=== PATIENT | male | born 1980 | race African-American/Black ===

== ENCOUNTER 2023-05-17 08:10 | Emergency (ER) | payer SELFPAY ==
--- OUTSIDE RECORDS SUMMARY | 2023-05-17 08:14 | XMS REPORT | Continuity of Care Document ---
Author Name Unknown Address [address] [facility] [place] [address] [facility] thconnect Address [address] [facility] [place] [address] Care Team Providers Care Tongue Presser Name Role Phone PCP, PATIENT DOES NOT HAVE A Primary Care Physic padmini Unavailable PAUL BILLY Attending Clinician UnavailPaul Benitez DO Attending Clinician PETE BONE Admitting Clinician Unavailable Allergies, Adverse Reactions, Alerts Allergy Name Allergy Type Status Severity Reaction(s) Onset Date Inactive Date Treating Clinician Comments Source NO KNOWN ALLERGIE S Drug Class Active [facility] Social History Social Habit Start Date Stop Date Quantity Comments Source Sex Assigned At 1980 00:00:00 1980 00:00:00 [facility] Smoking Status Start Date Stop Date Source Unknown if ever smoked [facility] Medications Ordered Medication Name Filled Medication Name Start Date Stop Date Current Medication? Ordering Clinician Indication Dosage Frequency Signature (SIG) Comments Components Source ceFAZolin in 0.9% sodium chloride (ANCEF) 2 gram/100 mL RTU 2 g 03-02 05:00: 00 07-12 18:30 :00 No 2000mg 2 g (2,000 mg), IV Piggyback, ONCE, 1 dose, On Sat03/02/22 at 0000, Administer over 30 Minutes
Reason for Anti-Infec tive: Empiric Therapy for Suspected Infection< br>Empiric Therapy Site: Wound
D uration of therapy: 72 hours [facility] iopamidol (ISOVUE 300-500 mL) injection 120 mL 07-12 15:15: 00 07-12 15:15 :00 No [id number] 120mL 120 mL, Intravenou s, ONCE, 1 dose, On Sat07/12/21 at 0915, Routine [facility] lactated ringers IV infusion 1,000 mL 07-12 14:30: 00 07-12 18:45 :00 No 1000mL at 999 mL/hr, 1,000 mL, IV Infusion, ONCE, 1 dose, On Sat07/12/21 at 0830, STAT [facility] Vital Signs Vital Name Observation Time Observation Value Comments S ource Systolic blood pressure 2021-07-12 18:25:00 138 mm[Hg] [facility] Diastolic blood pressure 2021-07-12 18:25:00 82 mm[Hg] [facility] Heart rate 2021-07-12 18:25:00 65 /min [facility] Body temperature 2021-07-12 18:25:00 37 Porsha [facility] Respiratory rate 2021-07-12 18:25:00 16 /min [facility] Oxygen saturation in Arterial blood by Pulse oximetry 2021-07-12 18:25:00 100 /min [facility] Body height 2021-07-12 18:08:46 175.3 cm [facility] Body weight 2021-07-12 18:08:46 83.915 kg [facility] BMI 2021-07-12 18:08:46 27.32 kg/m2 [facility] Procedures Procedure Date / Time Performed Performing Clinician Source CT TRAUMA HEAD WO CONTRAST 2021-07-12 15:55:[address] [facility] [address] TRAUMA THORAX W CONTRAST 2021-07-12 15:55:[address] [facility] [address] TRAUMA CERVICAL SPINE WO CONTRAST 2021-07-12 15:55:[address] [facility] [address] TRAUMA THORACIC SPINE WO CONTRAST 2021-07-12 15:55:[address] [facility] [address] TRAUMA ABDOMEN PELVIS W CONTRAST 2021-07-12 15:55:[address] [facility] [address] TRAUMA LUMBAR SPINE WO CONTRAST 2021-07-12 15:55:25 Dalia [facility] BASIC METABOLIC PANEL (NA, K, CL, CO2, GLUCOSE, BUN, CREATININE, CA) 2021-07-12 14:57:[address] [facility] CBC WITHOUT DIFF 2021-07-12 14:57:00 Alvarado Aviles [facility] PROTHROMBIN TIME / INR 2021-07-12 14:57:00 Jeevan Aviles [facility] ACTIVATED PARTIAL THRMPLAS NELY 2021-07-12 14:57:[address] [facility] HB ABO GROUPING 2021-07-12 14:50:00 Alvarado Aviles [facility] Encounters Start Date/Time End Date/Time Encounter Type Admission Type Attending [facility] Care Facility Care Department Encounter ID Source 2021-07-12 08:27:00 2021-07-12 13:03:00 Emergency T PAUL BILLY [facility] STR [id number] [facility] 2021-07-12 08:27:00 2021-07-12 13:03:00 Emergency Paul [facility] [id number] [facility] Results Test Description Test Time Test Comments Results Result Co mments Source [facility] [id number] 15:41:15* Test Item Value Reference Range Interpretation Comme nts WBC (test code = 6690-2) See_Comment [Automated messa ge] The system which generated this result transmitted reference range: 4.20 - 10.70 10*3/?L. The reference range was not used to interpret this result as normal/abnormal. RBC (test code = 789-8) See_Comment [Automated messa ge] The system which generated this result transmitted reference range: 4.26 - 5.52 10*6/?L. The reference range was not used to interpret this result as normal/abnormal. HGB (test code = 718-7) 12.9 g/dL 12.2-16.4 HCT (test code = 4544-3) 39.1 % 38.4-49.3 MCH (test code = 785-6) 29.1 pg 26.1-32.7 MCV (test code = 787-2) 88.3 fL 81.7-95.6 MCHC (test code = 786-4) 33.0 g/dL 31.2-35.0 PLT (test code = 777-3) See_Comment [Automated messa ge] The system which generated this result transmitted reference range: 150 - 328 10*3/?L. The reference range was not used to interpret this result as normal/abnormal. MPV (test code = 02617-7) 11.4 fL 9.8-13.0 RDW-CV (test code = 788-0) 12.5 % 12.1-15.4 RDW-SD (test code = 69730-9) 40.3 fL 38.5-51.6 NRBC x10^3 (test code = 0325480254) <0.01 See_Comment [Automated me ssage] The system which generated this result transmitted reference range: 10*3/?L. The reference range was not used to interpret this result as normal/abnormal. NRBC/100 WBC (test code = 4686637953) See_Comment [Automated me ssage] The system which generated this result transmitted reference range: 0.0 - 10.0 /100 WBCs. The reference range was not used to interpret this result as normal/abnormal. IPF % (test code = 1553392453) 7.3 % 1.2-10.7 Platelet count m easured by fluorescence method. [facility] Center[facility]th[facility] Time / [id number] 15:26:58* Test Item Value Reference Range Interpretation Comme nts PROTIME PATIENT (test code = 5964-2) See_Comment L [Automated messa ge] The system which generated this result transmitted reference range: 10.1 - 12.6 Seconds. The reference range was not used to interpret this result as normal/abnormal. INR (test code = 6301-6) Normal INR <1.1; Warfarin Therapeutic range 2.0 to 3.0 or 2.5 to 3.5, depending upon the indications. Lab Interpretation (test code = 06645-8) Abnormal [facility] Metabolic Panel (NA, K, CL, CO2, GLUCOSE, BUN, CREATININE, CA)2021-07-12 15:24:12* Test Item Value Reference Range Interpretation Comme nts NA (test code = 5936867479) 139 mmol/L 135-145 K (test code = 1573569939) 4.6 mmol/L 3.5-5.0 CL (test code = 0647025512) 106 mmol/L 98-108 CO2 TOTAL (test code = 6949767821) 26 mmol/L 23-31 AGAP (test code = 3462110565) 2-16 BUN (test code = 2135228071) 13 mg/dL 7-23 GLUCOSE (test code = 7332683898) 125 mg/dL 70-110 H CREATININE (test code = 0489122246) 0.83 mg/dL 0.60-1.25 CALCIUM (test code = 8889603194) 9.0 mg/dL 8.6-10.6 eGFR (test code = 8972986634) mL/min/1.73m2 NARESH (test code = NARESH) Association of Glomerular Filtration Rate (GFR) and Staging of Kidney Disease* + --+ --+ ------+| GFR (mL/min/1.73 m2) ?| With Kidney Damage ?| ?Without Kidney Damage+ --------+ --------+ +| ?>90 ?| ?Stage one ?| ? Normal ?+ ---+ ---+ -------+| ?60-89 ?| ?Stage two ?| ? Decreased GFR ? + --+ --+ ------+| ?30-59 ?| ?Stage three ?| ? Stage three ? + --+ --+ ------+| ?15-29 ?| ?Stage four ? | ? Stage four ?+ ---+ ---+ -------+| ?<15 (or dialysis) ? ?| ?Stage five ? | ? Stage five ?+ ---+ ---+ -------+ *Each stage assumes the associated GFR level has been in effect for at least three months. ?Stages 1 to 5, with or without kidney disease, indicate chronic kidney disease. Notes: Determination of stages one and two (with eGFR >59mL/min/1.73 m2) requires estimation of kidney damage for at least three months as defined by structural or functional abnormalities of the kidney, manifested by either:Pathological abnormalities or Markers of kidney damage (including abnormalities in the composition of the blood or urine or abnormalities in imaging tests). Lab Interpretation (test code = 96861-8) Abnormal [facility] Cent[facility]PTT[facility] 15:24:02* Test Item Value Reference Range Interpretation Comme nts APTT Patient (test code = 3173-2) See_Comment [Automated [employer]] The system which generated this result transmitted reference range: 26 - 36 Seconds. The reference range was not used to interpret this result as normal/abnormal. Lab Interpretation (test code = 41881-7) Normal [facility]"
--- NOTE | 2023-05-17 09:36 | EDPHYS ---
Physician Documentation [facility] Name: Paul Escobedo Age: 43 yrs Sex: Male : 1980 Arrival Date: 05/17/2023 Time: 08:10 Bed 11 Private MD: ED Physician Bar Villagran HPI: 05/17 09:48 This 43 yrs old Black Male presents to ER via Ambulatory with complaints of Low Back rt Pain. 09:48 Patient presents to the ED with a right lower back pain for about 3 days after he rt [employer] lights. Denies any discrete injury. States that it feels tight. Is nonradiating, no bowel, bladder incontinence, no numbness, tingling. Denies other acute complaints, symptoms are mild in severity, no other aggravating or alleviating factors.. Historical: - Allergies: 09:26 No Known Allergies; aa5 - PMHx: 09:26 None; aa5 - PSHx: 09:26 None; aa5 - Immunization history:: Adult Immunizations unknown. - Social history:: Smoking status: Patient denies any tobacco usage or history of. - Family history:: not pertinent. ROS: 09:48 Constitutional: Negative for fever, chills, and weight loss, Cardiovascular: Negative rt for chest pain, palpitations, and edema, Respiratory: Negative for shortness of breath, cough, wheezing, and pleuritic chest pain, Abdomen/GI: Negative for abdominal pain, nausea, vomiting, diarrhea, and constipation, Skin: Negative for injury, rash, and discoloration, Neuro: Negative for headache, weakness, numbness, tingling, and seizure, Psych: Negative for depression, anxiety, suicide ideation, homicidal ideation, and hallucinations, 09:48 Back: Positive for pain at rest, pain with movement, Exam: 09:48 Constitutional: This is a well developed, well nourished patient who is awake, alert, rt and in no acute distress. Head/Face: Normocephalic, atraumatic. Neck: Trachea midline, no thyromegaly or masses palpated, and no cervical lymphadenopathy. Supple, full range of motion without nuchal rigidity, or vertebral point tenderness. No Meningismus. Skin: Warm, dry with normal turgor. Normal color with no rashes, no lesions, and no evidence of cellulitis. MS/ Extremity: Pulses equal, no cyanosis. Neurovascular intact. Full, normal range of motion. Neuro: Awake and alert, GCS 15, oriented to person, place, time, and situation. Cranial nerves II-XII grossly intact. Motor strength 5/5 in all extremities. Sensory grossly intact. Cerebellar exam normal. Normal gait. Psych: Awake, alert, with orientation to person, place and time. Behavior, mood, and affect are within normal limits. 09:48 Back: Tenderness to the right lower paraspinal region, no midline tenderness, Vital Signs: 09:25 BP 135 / 92; Pulse 100; Resp 18 S; Temp 98.2(TE); Pulse Ox 100% on R/A; Weight 86.18 kg aa5 (R); Height 5 ft. 9 in. (R); 09:25 Body Mass Index 28.06 (86.18 kg, 175.26 cm) aa5 MDM: 09:31 Patient medically screened. rt 09:48 Differential diagnosis: Muscle spasm, arthritis, disc disease. Data reviewed: vital rt signs, nurses notes. Test considered but Not performed: MRI: No red flag symptoms to suggest cauda equina syndrome, spinal epidural abscess, MRI not indicated. Counseling: I had a detailed discussion with the patient and/or guardian regarding the historical points, exam findings, and any diagnostic results supporting the discharge/admit diagnosis, the need for outpatient follow up, to return to the emergency department if symptoms worsen or persist or if there are any questions or concerns that arise at home. Administered Medications: 09:53 Drug: Ketorolac IM 15 mg IM once Route: IM; Site: right gluteus; aa5 10:20 Follow up: Response: No adverse reaction aa5 Disposition Summary: 05/17/23 09:36 Discharge Ordered Notes: Location: Home rt Problem: new rt Symptoms: have improved rt Condition: Stable rt Diagnosis - Low back pain rt Followup: rt - With: Private Physician - When: 2 - 3 days - Reason: Discharge Instructions: - Discharge Summary Sheet rt - Acute Back Pain, Adult rt Forms: - Work release form aa5 - Medication Reconciliation Form rt - Thank You Letter rt - Antibiotic Education rt - Prescription Opioid Use rt - Patient Portal Instructions rt - Leadership Thank You Letter rt Prescriptions: - Cyclobenzaprine 10 mg Oral tablet - take 1 tablet ORAL route every 8 hours As needed; 15 tablet; Refills: 0, rt Product Selection Permitted Signatures: Leidy Miller, RN RN aa5 Bar Villagran MD MD rt
--- NOTE | 2023-05-17 09:36 | ER ---
Nurse's Notes [facility] Name: Paul Escobedo Age: 43 yrs Sex: Male : 1980 Arrival Date: 05/17/2023 Time: 08:10 Bed 11 Private MD: Diagnosis: Low back pain Presentation: 05/17 09:25 Chief complaint: Patient states: "My right lower back had been hurting but I was aa5 putting up the Allison lights and I think I tweaked it and now it's hurting worse". Coronavirus screen: At this time, the client does not indicate any symptoms associated with coronavirus-19. Ebola Screen: Patient denies travel to an Ebola-affected area in the 21 days before illness onset. Initial Sepsis Screen: Does the patient meet any 2 criteria? No. Patient's initial sepsis screen is negative. Does the patient have a suspected source of infection? No. Patient's initial sepsis screen is negative. Risk Assessment: Do you want to hurt yourself or someone else? Patient reports no desire to harm self or others. Onset of symptoms was May 2023. 09:25 Method Of Arrival: Ambulatory aa5 09:25 Acuity: JAGJIT 4 aa5 Historical: - Allergies: 09:26 No Known Allergies; aa5 - PMHx: 09:26 None; aa5 - PSHx: 09:26 None; aa5 - Immunization history:: Adult Immunizations unknown. - Social history:: Smoking status: Patient denies any tobacco usage or history of. - Family history:: not pertinent. Assessment: 10:20 Neuro: Level of Consciousness is awake, alert, obeys commands, Oriented to person, aa5 place, time, situation. Respiratory: Airway is patent Respiratory effort is even, unlabored, Respiratory pattern is regular, symmetrical. Derm: Skin is dry, Skin is normal, Skin temperature is warm. Vital Signs: 09:25 BP 135 / 92; Pulse 100; Resp 18 S; Temp 98.2(TE); Pulse Ox 100% on R/A; Weight 86.18 kg aa5 (R); Height 5 ft. 9 in. (R); 09:25 Body Mass Index 28.06 (86.18 kg, 175.26 cm) aa5 ED Course: 08:14 Patient arrived in ED. ts1 09:25 Arm band placed on. aa5 09:26 Triage completed. aa5 09:30 Bar Villagran MD is Attending Physician. rt 10:20 No provider procedures requiring assistance completed. Patient did not have IV access aa5 during this emergency room visit. Administered Medications: 09:53 Drug: Ketorolac IM 15 mg IM once Route: IM; Site: right gluteus; aa5 10:20 Follow up: Response: No adverse reaction aa5 Outcome: 09:36 Discharge ordered by . rt 10:20 Discharged to home ambulatory, with family, aa5 10:20 Condition: stable 10:20 Discharge instructions given to patient, Instructed on discharge instructions, follow up and referral plans. medication usage, Demonstrated understanding of instructions, follow-up care, medications, Prescriptions given X 1, 10:24 Patient left the ED. aa5 Signatures: Leidy Miller, RN RN aa5 Bar Villagran MD MD rt Ramona Munguia, PAS PAS ts1
[2023-05-17] MEDS ORDERED: KETOROLAC 30 MG/ML INJ ONE (09:48)
[2023-05-17 10:28] VITALS: BP 135/92; TEMP 98.2; O2SAT 100
== END 2023-05-17 10:24 | disposition home or self-care (01) ==
LOC: ER 08:10
DX: M54.50 Low back pain, unspecified (principal)
CPT/HCPCS: 96372; 99284

== ENCOUNTER 2024-03-25 15:04 | Emergency (ER) | payer BC ==
--- OUTSIDE RECORDS SUMMARY | 2024-03-25 15:06 | XMS REPORT | Continuity of Care Document ---
Author Name Unknown Address [address] [facility] [address] [place] [address] [facility] thconnect Address [address] [address] [place] [address] Care Team Providers Care Veterinary Medicine Scientist Name Role Phone PCP, PATIENT DOES NOT HAVE A Primary Care Physic padmini Unavailable Hank Dunbar Attending Clinician Unavailable TARA BILLY Attending Clinician UnavailTara Benitez DO Attending Clinician [phone] Physician, No Primary or Family Admitting Clinic padmini Unavailable PETE BONE Admitting Clinician Unavailable Payers Payer Name Policy Type Policy Number Effective Date Expirati on Date Source Allergies, Adverse Reactions, Alerts Allergy Name Allergy Type Status Severity Reaction(s) Onset Date Inactive Date Treating Clinician Comments Source No Known Allergie s DA Active U 2015-06 00:00: 00 ADELSO [facility] NO KNOWN ALLERGIE S Drug Class Active [facility] Social History Social Habit Start Date Stop Date Quantity Comments Source Sex Assigned At 1980 00:00:00 1980 00:00:00 [facility] Smoking Status Start Date Stop Date Source Unknown [facility] Medications Ordered Medication Name Filled Medication Name [...] Wound
D uration of therapy: 72 hours [facility] iopamidol (ISOVUE 300-500 mL) injection 120 mL 07-12 15:15: 00 07-12 15:15 :00 No [id number] 120mL 120 mL, Intravenou s, ONCE, 1 dose, On Sat07/12/21 at 0915, Routine [facility] lactated ringers IV infusion 1,000 mL 07-12 14:30: 00 07-12 18:45 :00 No 1000mL at 999 mL/hr, 1,000 mL, IV Infusion, ONCE, 1 dose, On Sat07/12/21 at 0830, STAT [facility] Vital Signs Vital Name Observation Time Observation Value Comments S ource Systolic blood pressure 2021-07-12 18:25:00 138 mm[Hg] [facility] Diastolic blood pressure 2021-07-12 18:25:00 82 mm[Hg] [facility] Heart rate 2021-07-12 18:25:00 65 /min [facility] Body temperature 2021-07-12 18:25:00 37 Porsha [facility] Respiratory rate 2021-07-12 18:25:00 16 /min [facility] Oxygen saturation in Arterial blood by Pulse oximetry 2021-07-12 18:25:00 100 /min [facility] Body height 2021-07-12 18:08:46 175.3 cm [facility] Body weight 2021-07-12 18:08:46 83.915 kg [facility] BMI 2021-07-12 18:08:46 27.32 kg/m2 [facility] Procedures Procedure Date / Time Performed Performing Clinician Source CT TRAUMA HEAD WO CONTRAST 2021-07-12 15:55:25 Dalia, [facility] CT TRAUMA THORAX W CONTRAST 2021-07-12 15:55:25 Dalia, [facility] CT TRAUMA CERVICAL SPINE WO CONTRAST 2021-07-12 15:55:25 Dalia, [facility] CT TRAUMA THORACIC SPINE WO CONTRAST 2021-07-12 15:55:25 Dalia, [facility] CT TRAUMA ABDOMEN PELVIS W CONTRAST 2021-07-12 15:55:25 Dalia, [facility] CT TRAUMA LUMBAR SPINE WO CONTRAST 2021-07-12 15:55:25 Dalia, [facility] BASIC METABOLIC PANEL (NA, K, CL, CO2, GLUCOSE, BUN, CREATININE, CA) 2021-07-12 14:57:00 Al[facility] CBC WITHOUT DIFF 2021-07-12 14:57:00 Alvarado Aviles glas [facility] PROTHROMBIN TIME / INR 2021-07-12 14:57:00 Jeevan Aviles [facility] ACTIVATED PARTIAL THRMPLAS NELY 2021-07-12 14:57:00 [facility] HB ABO GROUPING 2021-07-12 14:50:00 Alvarado Aviles [facility] Encounters Start Date/Time End Date/Time Encounter Type Admission Type Attending [facility] Care Facility Care Department Encounter ID Source 2023-06-13 09:32:00 2023-06-13 11:43:00 Emergency Hank Walters [facility] [id number] 11 [facility] 2021-07-12 08:27:00 2021-07-12 13:03:00 Emergency TARA MADERA [facility] STR [id number] [facility] 2021-07-12 08:27:00 2021-07-12 13:03:00 Emergency Tara Billy [facility] [id number] [facility] Results Test Description Test Time Test Comments Results Resul t Comments Source - XR WRIST 3 + V RT 2023-06-13 09:56:00 [facility] 1980 Sex: M FAX: Hank Dunbar DO Combs: St: REG Name: TARA DANIELSON J [facility] : 1980 Age/S: 43/M [address] [facility] [facility] Unit #: [id number] Loc: [facility] [place], [place]: [place] [id number] Acct: [id number] Dis Date: Status: REG ER PHONE #: [phone] Exam Date: 06/13/2023 0954 FAX #: [phone] Reason: abscess distally EXAMS: CPT CODE: [id number] XR WRIST 3 + V RT 30237 Location code: B2 X-ray right wrist 3 views. INDICATION: Abscess. FINDINGS: No priors. No evidence of an acute fracture or dislocation. No definite healing fractures are seen. Carpal row is intact. Distal radioulnar joint is intact. Soft tissue ulceration ulnar aspect of the distal forearm with soft tissue swelling. IMPRESSION: 1. No acute osseous abnormality. Soft tissue ulceration along the ulnar aspect of the distal forearm noted with soft tissue cellulitis at 0956 Reported and signed by: Ankit Watts M.D. CC: Hank Dunbar DO Technologist: WINSTON Edouardrd Date/Time/By: 06/13/2023 (6356) : By: [email or web address] PAGE 1 Signed Report FAX: Hank Dunbar DO Combs: St: REG Name: TARA DANIELSON [facility] : 1980 Age/S: 43/M [address] [facility] Unit #: [id number] Loc: E.ERS2 [place], [place]: [place] [id number] Acct: [id number] Dis Date: Status: REG ER PHONE #: [phone] Exam Date: 06/13/2023 0954 FAX #: [phone] Reason: abscess distally EXAMS: CPT CODE: [id number] XR WRIST 3 + V RT [id number] (Continued) Orig Print D/T: S: 06/13/2023 (0129) PAGE 2 Signed Report [facility] / [id number] 15:41:15* Test Item Value Reference Range Interpretation Comme nts WBC (test code = 6690-2) See_Comment [Automated Compumatrix[employer] Footmarks] The system which generated this result transmitted reference range: 4.20 - 10.70 10*3/?L. The reference range was not used to interpret this result as normal/abnormal. RBC (test code = 789-8) See_Comment [Automated [employer] Footmarks] The system which generated this result transmitted [...] PLT (test code = 777-3) See_Comment [Automated Compumatrixa ge] The system which generated this result transmitted reference range: 150 - 328 10*3/?L. The reference range was not used to interpret this result as normal/abnormal. MPV (test code = 59208-1) 11.4 fL 9.8-13.0 RDW-CV (test code = 788-0) 12.5 % 12.1-15.4 RDW-SD (test code = 16129-0) 40.3 fL 38.5-51.6 NRBC x10^3 (test code = 7567813383) <0.01 See_Comment [Automated me ssage] The system which generated this result transmitted reference range: 10*3/?L. The reference range was not used to interpret this result as normal/abnormal. NRBC/100 WBC (test code = 5573918154) See_Comment [Automated me ssage] The system which generated this result transmitted reference range: 0.0 - 10.0 /100 WBCs. The reference range was not used to interpret this result as normal/abnormal. IPF % (test code = 7895676138) 7.3 % 1.2-10.7 Platelet count m easured by fluorescence method. [facility] AmericaProthrombin Time / [id number] 15:26:58* Test Item Value Reference Range Interpretation Comme nts PROTIME PATIENT (test code = 5964-2) See_Comment L [Automated Compumatrixa ge] The system which generated this result transmitted reference range: 10.1 - 12.6 Seconds. The reference range was not used to interpret this result as normal/abnormal. INR (test code = 6301-6) Normal INR <1.1; Warfarin Therapeutic range 2.0 to 3.0 or 2.5 to 3.5, depending upon the indications. Lab Interpretation (test code = 07493-8) Abnormal [facility] Metabolic Panel (NA, K, CL, CO2, GLUCOSE, BUN, CREATININE, CA)2021-07-12 15:24:12* Test Item Value Reference Range Interpretation Comme nts NA (test code = 7095087186) 139 mmol/L 135-145 K (test code = 0478452729) 4.6 mmol/L 3.5-5.0 CL (test code = 8569933048) 106 mmol/L 98-108 CO2 TOTAL (test code = 0742775457) 26 mmol/L 23-31 AGAP (test code = 1362039699) 2-16 BUN (test code = 3577867076) 13 mg/dL 7-23 GLUCOSE (test code = 9734310681) 125 mg/dL 70-110 H CREATININE (test code = 1439233068) 0.83 mg/dL 0.60-1.25 CALCIUM (test code = 2629445068) 9.0 mg/dL 8.6-10.6 eGFR (test code = 7669008089) mL/min/1.73m2 NARESH (test code = NARESH) Association [...] imaging tests). Lab Interpretation (test code = 89283-8) Abnormal [facility] AmericaaPTT2022-02-09 15:24:02* Test Item Value Reference Range Interpretation Comme nts APTT Patient (test code = 3173-2) See_Comment [Automated messa ge] The system which generated this result transmitted reference range: 26 - 36 Seconds. The reference range was not used to interpret this result as normal/abnormal. Lab Interpretation (test code = 56444-4) Normal [facility] Notes Date/Time Note Provider Source 2023-06-13 11:16:00 [facility] EMERGENCY PROVIDER REPORT REPORT#:[id number] REPORT STATUS: Signed DATE:06/13/23 TIME: 1116 PATIENT: TARA DANIELSON UNIT #: [id number] ROOM/BED: AGE: 43 SEX: M PCP PHYS: No Primary or Family Physician SERVICE AUTHOR: Hank Dunbar DO * ALL edits or amendments must be made on the electronic/computer document * HPI-Headache Free Text HPI Notes Free Text HPI Notes Patient reports right arm pain, for the past few days, mild intensity, nonradiating, worse with pressure. Started as insect bite that has been getting worse REVIEW OF SYSTEMS ROS STATEMENTS *All systems reviewed negative except as marked Constitutional: no fever, no chills Cardiovascular: no chest pain or discomfort, no palpitations Respiratory: no gncstbrgm-kf-wvdeam, no cough GI: no nausea, no vomiting, no diarrhea, no constipation, no abdominal pain Neurologic: no weakness or numbness. Musculoskeletal: (+) Arm pain General Initial Greet Date/Time 06/13/23 0933 Presentation Chief Complaint R arm pain Sudden in Onset? No Pain/Sev: Onset Mild Past Medical History - Adult Stated Complaint INSECT BITE Allergies Coded Allergies: No Known Allergies (04/10/16) Pt reports no significant: Past medical history, Past surgical history, Family history Drug Use Marijuana (synthetic) Smoking status for patients 13 years old or older: Never Smoker Physical Exam Vital Signs Vital Signs First Documented: Result Date Time Pulse Ox 99 06/13 939 B/P 143/83 06/13 939 B/P Mean 103 06/13 939 Temp 98.6 06/13 939 Pulse 99 06/13 939 Resp 19 06/13 939 Last Documented: Result Date Time Pulse Ox 99 06/13 0840 B/P 143/83 06/13 939 B/P Mean 103 06/13 939 Temp 98.6 06/13 939 Pulse 99 06/13 939 Resp 19 06/13 939 Review of Vital Signs Reviewed Free Text PE Notes Free Text PE Notes General: Awake, Alert, Cooperative Head/Scalp: NCAT Eyes: Atraumatic, PERRL, EOMI, No periorbital swelling, Conjunctiva NL ENT: Atraumatic, Airway patent, Mucous membranes moist, No facial swelling Neck: Atraumatic, Supple, No swelling, No tracheal deviation Cardiovascular: Heart rate regular, Peripheral circulation normal Respiratory/Chest: Atraumatic, bilateral breath sounds NL, No respiratory distress Abdomen: Soft, Nontender, Nondistended Upper Extremity: Positive right forearm with medium sized abscess that is open and draining pus, distal neurovascular intact, no crepitus, compartments soft, full range of motion in all directions Lower Ext/Pelvis: Atraumatic, Inspection NL, Non-tender, No deformity, Neurologic: No motor deficits, No sensory deficits Interpretation Diagnostics Lab Results Interpretation Results Recent Impressions: RADIOLOGY - XR WRIST 3 + V RT 06/13 953 Report Impression - Status: SIGNED Entered: 06/13/2023 0959 IMPRESSION: 1. No acute osseous abnormality. Soft tissue ulceration along the ulnar aspect of the distal forearm noted with soft tissue cellulitis Impression By: KitaRKSuellen - Ankit Watts M.D. Re-Evaluation MDM Free Text MDM Notes Free Text MDM Notes R forearm abscess and cellulitis Actively draining and will not require incision Imaging without obvious evidence of deep tissue pathology at this time. Antibiotics prescribed Results reviewed and findings discussed. Patient reports improvement in symptoms. We discussed the importance of follow-up with patient's Primary Care Physician within 3 days. We discussed the need to seek medical attention if symptoms persist, worsen, or if new symptoms arise. Patient Discharge Departure Vital Signs/Condition Vital Signs First Documented: Result Date Time Pulse Ox 99 06/13 939 B/P 143/83 06/13 939 B/P Mean 103 06/13 939 Temp 98.6 06/13 939 Pulse 99 06/13 939 Resp 06/13 Last Documented: Result Date Time Pulse Ox 99 06/13 939 B/P 143/83 06/13 939 B/P Mean 103 06/13 939 Temp 98.6 06/13 939 Pulse 99 06/13 939 Resp 06/13 All vital signs available at the time of this entry have been reviewed. Clinical Impression Clinical Impression Primary Impression: Abscess of right forearm Disposition Decision Discharge )( Discharged to Home Yes )( Time 1118 )( Date 06/13/23 Discharge/Care Plan (Auto) Prescriptions Current Visit Scripts CLINDAMYCIN HCL (CLEOCIN) 300 MG PO TID 10 Days #30 CAPS Patient Instructions Abscess Abx Tx Additional Instructions FOLLOW-UP INSTRUCTIONS Please follow-up with your primary care doctor within 3 days for a re- evaluation. Please seek medical attention sooner if any symptoms persist, worsen , or if new symptoms arise. EMERGENCY EVALUATION Today's evaluation has been on an emergency basis only and is not intended as an effort to provide complete medical care. It is not possible to recognize and treat all elements of an illness or injury in a single ER visit. Please visit your primary care doctor for a complete evaluation. WE NEED YOUR FEEDBACK I want to personally thank you for choosing our facility provide you with emergent medical care. You will receive a survey in about a week asking for your feedback about today's visit. If your experience today was helpful, then please do us a big favor and fill the survey out for us. A high rating helps us out a lot. Thank you again. at 0841 RPT #:[id number] END OF REPORT [facility]"
[2024-03-25] MEDS ORDERED: HYDROCODONE/APAP 10/325 TAB ONE (16:03)
[2024-03-25 16:08] LABS: Absolute Eosinophils 0.1 K/uL (0-0.5); Absolute Lymphocytes (CBC) 2.4 K/uL (0.7-4.9); Absolute Monocytes 0.5 K/uL (0.1-1.3); Absolute Neutrophil 3.9 K/uL (1.8-8.0); Basophils % 0.5 % (0-1.3); Eosinophils % 1.7 % (0-4.4); Hematocrit 37.1 % (39.6-49.0); Hemoglobin 11.7 g/dL (13.6-17.9); Lymphocytes % 34.2 % (15.3-44.8); MCH 28.5 pg (27.0-35.0); MCHC 31.6 g/dL (32.0-36.0); MCV 90.3 fL (80-100); MPV 9.7 fL (7.6-11.3); Monocytes % 7.8 % (3.3-12.3); Neutrophils % 55.8 % (41.7-73.7); Nucleated Red Blood Cells % 0.1 % (0-0); Platelets 267 thou/uL (152-406); Red Cell Distribution Width 13.9 % (12.1-15.2)
[2024-03-25 16:18] LABS: PT Prothrombin Time 10.9 SECONDS (9.4-12.5); PTT, Activated Partial Thromb 29.3 SECONDS (24.3-36.9); Protime INR 0.97
[2024-03-25 16:28] LABS: Anion Gap 6.8 mEq/L (5.0-15.0)
[2024-03-25 16:29] LABS: Potassium 3.8 mEq/L (3.5-5.1)
--- NOTE | 2024-03-25 17:26 | RAD REPORT ---
EXAM: Chest Abdomen Pelvis W Cont CLINICAL INDICATION: Chest and abdominal pain status post fall TECHNIQUE: CT chest, abdomen and pelvis was performed, with 100 cc Isovue-300 IV contrast, as per de partment protocol. Axial, sagittal and coronal reconstructions were obtained. One or more of the following dose reduction techniques were used: Automated exposure control, adjustment of the mA and/o r kV according to the patient size, and/or iterative reconstruction. Unless otherwise specified, incidental findings do not require dedicated imaging follow-up. [id number]. Oral contrast not given. This limits evaluation of the bowel. COMPARISON: None FINDINGS: A pulmonary contusion not seen. No mediastinal hematoma noted No pleural effusion.. No pericardial effusion Liver, spleen, pancreas, adrenals, kidneys and bladder do not demonstrate any acute traumatic injury. There is no evidence of diverticulitis Small nonobstructing left renal calculus. Mild gastric distention IMPRESSION: No acute traumatic injury involving chest, abdomen or pelvis seen Mild gastric distention
--- NOTE | 2024-03-25 18:14 | EDPHYS ---
Physician Documentation [facility] Name: Paul Escobedo Age: 43 yrs Sex: Male : 1980 Arrival Date: 03/25/2024 Time: 15:04 Bed 25 Private MD: ED Physician Magdiel Hicks HPI: 03/25 15:17 This 43 yrs old Black Male presents to ER via Ambulatory with complaints of Low Back rn Pain. 15:17 The patient presents with pain that is acute, with no known mechanism of injury. The rn symptoms are located in the lumbar area, left low back and right low back. The pain does not radiate. Onset: The symptoms/episode began/occurred just prior to arrival. Modifying factors: The patient symptoms are alleviated by nothing, the patient symptoms are aggravated by any movement. Associated signs and symptoms: Pertinent positives: none Pertinent negatives: abdominal pain, chest pain, dysuria, fever, headache, hematuria, incontinence, nausea, numbness, tingling, urinary retention. Severity of symptoms: At their worst the symptoms were moderate, in the emergency department the symptoms are unchanged. The patient has not experienced similar symptoms in the past. Patient reports working on a roof, was on a ladder and pulled the nail, fell backward off of a ladder onto ground flat on back approximately 6 foot height. No head injury or neck injury. Reports isolated pain to right lower back. No bowel or bladder issues. Ambulatory without weakness. Denies rib pain or injury. No chest pain. No abdominal pain. No lower extremity or upper extremity injury or pain. Has had back issues in the past.. Historical: - Allergies: 15:13 No Known Allergies; cm10 - Home Meds: 15:13 None [Active]; cm10 - PMHx: 15:13 None; cm10 - PSHx: 15:13 None; cm10 - Immunization history:: Adult Immunizations up to date. - Infectious Disease History:: Denies. - Social history:: Smoking status: Patient reports the use of cigarette tobacco products, smokes one-half pack cigarettes per day. - Family history:: not pertinent. - Hospitalizations: : No recent hospitalization is reported. ROS: 15:17 Constitutional: Negative for fever, chills, and weight loss, Neck: Negative for injury, rn pain, and swelling, Cardiovascular: Negative for chest pain, palpitations, and edema, Respiratory: Negative for shortness of breath, cough, wheezing, and pleuritic chest pain, Abdomen/GI: Negative for abdominal pain, nausea, vomiting, diarrhea, and constipation, Back: Positive for right lower back pain MS/Extremity: Negative for injury and deformity, Skin: Negative for injury, rash, and discoloration, Neuro: Negative for headache, weakness, numbness, tingling, and seizure, Exam: 15:17 Constitutional: This is a well developed, well nourished patient who is awake, alert, rn and in no acute distress. Chest/axilla: No crepitus or rib tenderness Cardiovascular: Tachycardic, regular Respiratory: Speaking full sentences, unlabored. Abdomen/GI: Soft, nontender Back: No midline spinal tenderness. Mild tenderness right lower Gagan lumbar region. No masses. MS/ Extremity: Pulses equal, no cyanosis. Neurovascular intact. Full, normal range of motion. Equal circumference. Neuro: Awake and alert, GCS 15 Vital Signs: 15:11 BP 144 / 79; Pulse 115; Resp 18; Temp 97.1; Pulse Ox 100% on R/A; Weight 92.99 kg; cm10 Height 5 ft. 9 in. ; Pain 8/10; 16:00 BP 124 / 75; Pulse 88; Resp 16; Pulse Ox 99% ; me1 16:35 Pain 3/10; me1 17:00 BP 126 / 74; Pulse 81; Resp 16; Pulse Ox 100% ; me1 18:00 BP 127 / 75; Pulse 92; Resp 16; Temp 98.4; Pulse Ox 100% ; me1 15:11 Body Mass Index 30.27 (92.99 kg, 175.26 cm) cm10 15:11 Pain Scale: Adult cm10 16:35 Pain Scale: Adult me1 MDM: 15:08 Medical Screening Exam initiated rn 18:12 Differential diagnosis: fracture, contusion. 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 Counseling: I had a detailed discussion with the patient and/or guardian regarding the historical points, exam findings, and any diagnostic results supporting the discharge/admit diagnosis, lab results, radiology results, the need for outpatient follow up, to return to the emergency department if symptoms worsen or persist or if there are any questions or concerns that arise at home. Response to treatment: the patient's symptoms have mildly improved after treatment, and as a result, I will discharge patient. Special discussion: I discussed with the patient/guardian in detail that at this point there is no indication for admission to the hospital. It is understood, however, that if the symptoms persist or worsen the patient needs to return immediately for re-evaluation. ED course: No acute traumatic findings in chest abdomen pelvis. Will discharge home with nqtb-rqj-okvnsts anti-inflammatories and ice and given return precautions.. 03/25 15:14 Order name: CBC with Diff; Complete Time: 16:49 rn 03/25 15:14 Order name: Basic Metabolic Panel; Complete Time: 16:49 rn 03/25 15:14 Order name: Protime (+inr); Complete Time: 16:49 rn 03/25 15:14 Order name: Ptt, Activated; Complete Time: 16:49 rn 03/25 15:14 Order name: CT Chest, Abdomen, Pelvis - W/Contrast; Complete Time: 18:03 rn 03/25 15:14 Order name: IV Start; Complete Time: 16:00 rn Administered Medications: 16:05 Drug: [place] PO 10 mg-325 mg 1 tabs PO once Route: PO; me1 16:35 Follow up: Pain 3 Adult; Response: No adverse reaction; Pain is decreased me1 Disposition Summary: 03/25/24 18:13 Discharge Ordered Notes: Location: Home rn Problem: new rn Symptoms: have improved rn Condition: Stable rn Diagnosis - Low back pain rn - Contusion of lower back and pelvis rn Followup: rn - With: Private Physician - When: As needed - Reason: Recheck today's complaints, Re-evaluation by your physician Discharge Instructions: - Discharge Summary Sheet rn - Acute Back Pain, Adult rn - Contusion rn Forms: - Work release form bd - Medication Reconciliation Form rn - Antibiotic nurse intern - Prescription Opioid Use rn - Patient Portal Instructions rn - Leadership Thank You Letter rn Signatures: Dispatcher [employer] Magdiel Burgos MD MD rn Martinez, Clarissa, RN RN 10 Arleth Scott RN RN az1
--- NOTE | 2024-03-25 18:14 | ER ---
Nurse's Notes [facility] Name: Paul Escobedo Age: 43 yrs Sex: Male : 1980 Arrival Date: 03/25/2024 Time: 15:04 Bed 25 Private MD: Diagnosis: Low back pain;Contusion of lower back and pelvis Presentation: 03/25 15:11 Chief complaint: Patient states: Fell off ladder on Saturday. Pt states that he fell back cm10 and is now having pain on his right lower side. Coronavirus screen: Vaccine status:. Ebola Screen: Patient denies travel to an Ebola-affected area in the 21 days before illness onset. No symptoms or risks identified at this time. Initial Sepsis Screen: Does the patient meet any 2 criteria? HR > 90 bpm. No. Patient's initial sepsis screen is negative. Does the patient have a suspected source of infection? No. Patient's initial sepsis screen is negative. Risk Assessment: Do you want to hurt yourself or someone else? Patient reports no desire to harm self or others. Onset of symptoms was March 25, 2024. 15:11 Method Of Arrival: Ambulatory cm10 15:11 Acuity: JAGJIT 4 cm10 15:52 Acuity: JAGJIT 3 iw Triage Assessment: 15:13 General: Appears in no apparent distress. comfortable, Behavior is calm, cooperative. cm10 Pain: Complains of pain in back Pain currently is 8 out of 10 on a pain scale. Quality of pain is described as sharp. Neuro: No deficits noted. Level of Consciousness is awake, alert, obeys commands, Oriented to person, place, time, situation, Appropriate for age. Respiratory: No deficits noted. Airway is patent Respiratory effort is even, unlabored, Respiratory pattern is regular, symmetrical. Historical: - Allergies: 15:13 No Known Allergies; cm10 - Home Meds: 15:13 None [Active]; cm10 - PMHx: 15:13 None; cm10 - PSHx: 15:13 None; cm10 - Immunization history:: Adult Immunizations up to date. - Infectious Disease History:: Denies. - Social history:: Smoking status: Patient reports the use of cigarette tobacco products, smokes one-half pack cigarettes per day. - Family history:: not pertinent. - Hospitalizations: : No recent hospitalization is reported. Screenin:40 [facility] ED Fall Risk Assessment (Adult) History of falling in the last 3 months, me1 including since admission Yes- single mechanical fall (1 pt) Confusion or Disorientation No (0 pts) Intoxicated or Sedated No (0 pts) Impaired Gait No (0 pts) Mobility Assist Device Used No (0 pt) Altered Elimination No (0 pt) Score/Fall Risk Level 0 - 2 = Low Risk Maintained a safe environment, Provided non-skid footwear, Hourly rounding (assess needs \T\ fall precautionary measures) done. Abuse screen: Denies threats or abuse. Nutritional screening: No deficits noted. Tuberculosis screening: No symptoms or risk factors identified. Assessment: 15:40 General: Appears uncomfortable, well groomed, well developed, well nourished, Behavior me1 is calm, cooperative, appropriate for age, Reports Fell off ladder on Saturday. Pt states that he fell back and is now having pain on his right lower side. Pain: Complains of pain in right low back and left low back Pain does not radiate. Pain currently is 8 out of 10 on a pain scale. Neuro: Level of Consciousness is awake, alert, obeys commands, Oriented to person, place, time, situation, Appropriate for age. Cardiovascular: Patient's skin is warm and dry. Respiratory: Airway is patent Respiratory effort is even, unlabored, Respiratory pattern is regular, symmetrical. GI: No signs and/or symptoms were reported involving the gastrointestinal system. : No signs and/or symptoms were reported regarding the genitourinary system. EENT: No signs and/or symptoms were reported regarding the EENT system. Derm: Skin is intact, is healthy with good turgor, Skin is pink, warm \T\ dry. Musculoskeletal: Reports pain in right low back and left low back. Injury Description: Fell off ladder on Saturday. Pt states that he fell back and is now having pain on his right lower side. Vital Signs: 15:11 BP 144 / 79; Pulse 115; Resp 18; Temp 97.1; Pulse Ox 100% on R/A; Weight 92.99 kg; cm10 Height 5 ft. 9 in. ; Pain 8/10; 16:00 BP 124 / 75; Pulse 88; Resp 16; Pulse Ox 99% ; me1 16:35 Pain 3/10; me1 17:00 BP 126 / 74; Pulse 81; Resp 16; Pulse Ox 100% ; me1 18:00 BP 127 / 75; Pulse 92; Resp 16; Temp 98.4; Pulse Ox 100% ; me1 15:11 Body Mass Index 30.27 (92.99 kg, 175.26 cm) cm10 15:11 Pain Scale: Adult cm10 16:35 Pain Scale: Adult me1 ED Course: 15:06 Patient arrived in ED. im 15:08 Magdiel Hicks MD is Attending Physician. rn 15:13 Triage completed. cm10 15:13 Arm band placed on Patient placed in waiting room. cm10 15:40 Patient has correct armband on for positive identification. Bed in low position. Call me1 light in reach. Side rails up X2. Provided Education on: POC. Verbalized understanding.. Client placed on continuous cardiac and pulse oximetry monitoring. NIBP monitoring applied. Pulse ox on. NIBP on. 15:40 No provider procedures requiring assistance completed. me1 15:43 Arleth Scott, RN is Primary Nurse. me1 16:00 CBC with Diff Sent. me1 16:01 Basic Metabolic Panel Sent. me1 16:01 Ptt, Activated Sent. me1 16:01 Protime (+inr) Sent. me1 16:01 Initial lab(s) drawn, by me, sent to lab. Inserted saline lock: 22 gauge in right me1 antecubital area, using aseptic technique. 17:15 CT Chest, Abdomen, Pelvis - W/Contrast In Process Unspecified. EDMS 18:23 IV discontinued, intact, bleeding controlled, No redness/swelling at site. Pressure ma1 dressing applied. Administered Medications: 16:05 Drug: Neopit PO 10 mg-325 mg 1 tabs PO once Route: PO; me1 16:35 Follow up: Pain 3/10 Adult; Response: No adverse reaction; Pain is decreased me1 Medication: 15:40 VIS not applicable for this client. me1 Outcome: 18:13 Discharge ordered by . rn 18:23 Discharged to home ambulatory, with significant other, me1 18:23 Condition: stable 18:23 Discharge instructions given to patient, significant other, Instructed on discharge instructions, follow up and referral plans. Demonstrated understanding of instructions, follow-up care, 18:24 Patient left the ED. ma1 Signatures: Dispatcher MedMichelle Cooper RN RN iw Nieto, Roman, MD MD rn Mendoza, Itzel im Martinez, Clarissa, RN RN cm10 Arleth Scott RN RN me1 Corrections: (The following items were deleted from the chart) 17:02 15:11 Chief complaint: Patient states: Fell off ladder on Saturday. Pt states that he me1 fell back and is now having pain on his right lower side. cm10
[2024-03-26 01:08] VITALS: O2SAT 100
[2024-03-26 01:09] VITALS: BP 127/75; TEMP 98.4
== END 2024-03-25 18:24 | disposition home or self-care (01) ==
LOC: ER 15:04
DX: S30.0XXA Contusion of lower back and pelvis, initial encounter (principal); W11.XXXA Fall on and from ladder, initial encounter; F17.210 Nicotine dependence, cigarettes, uncomplicated
CPT/HCPCS: 85025; 80048; 36415; 85610; 85730; 71260; 74177; Q9967